=== PATIENT | female | born 1970 | race Caucasian/White ===

== ENCOUNTER 2020-09-03 11:19 | Outpatient (CLI) | payer OTHER ==
--- NOTE | 2020-09-03 11:53 | RAD ---
Exam: XR Knee Rt 4 View STANDARD HISTORY: Acute right knee pain. Bruising all over knee. Patient fell 10 days ago. COMPARISON: None FINDINGS: Minimal osteophytes are seen involving the medial joint compartment and patellofemoral joint. No frac ture, dislocation, or other osseous abnormality is seen involving the right knee. Subcutaneous soft tissue swelling is seen about the knee greater anteriorly. Minimal vascular calcifications are seen posterior to the knee. IMPRESSION: No acute osseous abnormality is identified.
== END 2020-09-03 11:20 | disposition home or self-care (01) ==
LOC: BURRAD 11:19
PROVIDERS: ATTEND Clinical Nurse Specialist Medical-Surgical
DX: M25.561 Pain in right knee (principal)